=== PATIENT | female | born 1985 | race Caucasian/White ===

== ENCOUNTER 2017-01-29 22:50 | Observation (INO) | payer OTHER ==
[~2017-01-29] VITALS: Ht 170.2 cm; Wt 107.8 kg
[2017-01-29 22:51] VITALS: BP 152/104; PULSE 99; RESP 20; O2SAT 100
[2017-01-29] MEDS ORDERED: 0.9% Sodium Chloride 1,000 ML IV ONE (23:40)
--- NOTE | 2017-01-29 23:43 | ED.REPORT ---
HPI- Female Date of Service Jan 29, 2017 ED Provider: Samuel Lucia Pt is a 13 week 31 year old female who presents to the ED complaining of severe vaginal bleeding onset 10 minutes prior to arrival. She reportedly filled the toilet full with blood. She began with a large clot, indicating to hands full of clot. She c/o associated dizziness, nausea, abdominal cramping, and "hot flashes". She denies vaginal spotting and syncope. The pt reports that her current is her first , and it has not had any complications up until today. Nursing Notes Stated Complaint: 13 WKS BLEEDING Chief Complaint: & Delivery Nursing Notes Reviewed: Yes Allergies: Coded Allergies: No Known Allergies (Unverified , 01/29/17) General Time Seen by MD: 23:43 Chief Complaint Vaginal bleeding... (Moderate) Hx Obtained From: Patient Arrived By: Walk-in Sudden in Onset?: Yes Onset Occurred: 1 - 15 minutes ago Symptom Duration: Since onset Location: : Abdomen lower Quality: Cramping Severity: Current: Moderate Severity: Maximum: Moderate Recent Healthcare: Recent doctor visit Similar Sx Previous: No Past Medical History Past Medical History Healthy 13 weeks pregant - 01/29/17 Past Surgical History Gastric sleeve Smoking History Current Every Day Smoker Social History Alcohol Use: 1-3 per week Drug Use: Denies drug use Other Social History: Ambulatory Status Independent Review of Systems Denies vaginal spotting + Hot flashes GI: Reports: Abdominal pain, Nausea Female: Reports: Vaginal bleeding - abnl Neurologic: Reports: Dizziness, Denies: Syncope Complete sys rev & neg: except as marked. Physical Exam Initial Vital Signs Vital Signs (First) Date Time Temp Pulse Resp B/P Pulse Ox O2 Delivery O2 Flow Rate FiO2 01/29/17 22:51 99 20 152/104 100 Room Air Initial VS: Reviewed Head / Eyes: Atraumatic, Normocephalic Neck: Supple, Full range of motion Respiratory: Breath sounds normal, Clear to auscultation, No respiratory distress Cardiovascular: Regular rate & rhythm, Heart sounds normal, Intact distal pulses Abdomen / GI: Soft, Non-tender Extremities: Vascular intact, Neuro intact Skin: Warm Neurologic: Alert, Oriented, Nonfocal Psychiatric: Mood/affect normal, Behavior normal Female Genitourinary: Exam deferred General/Constitutional: Awake, Alert, No acute distress, Cooperative Behavior: Positive: Anxious Diaphoretic. Abdomen: Atraumatic, Soft Tenderness in lower abdomen. Interpretation & Diagnostics US , TRANSABDOMINAL: IMPRESSION: Single, viable IUP measuring 13 weeks. No subchorionic hemorrhage. Mild fluid in the endocervical canal is nonspecific. Transmitted to the ED at 01:28 by Stacia Thurston M.D. Lab Results Interpretation Result Diagram: 01/30/17 0314 01/29/17 2335 Test 01/29/17 23:35 01/30/17 00:50 01/30/17 03:14 Sodium Level 137mEq/L (134-144) Potassium Level 3.4mEq/L (3.5-5.2) Chloride Level 100mEq/L (97-108) Carbon Dioxide Level 22mmol/L (18-29) Blood Urea Nitrogen 8mg/dL (6-20) Creatinine 0.40mg/dL (0.57-1.00) Estimat Glomerular Filtration Rate 270mL/min (>59) Glucose Level 84mg/dL (60-99) Calcium Level 8.6mg/dL (8.5-10.1) Total Bilirubin 0.2mg/dL (0.0-1.2) Aspartate Amino Transf (AST/SGOT) 13U/L (0-50) Alanine Aminotransferase (ALT/SGPT) 15U/L (0-32) Alkaline Phosphatase 38U/L (25-150) Total Protein 6.9g/dL (6.4-8.4) Albumin 3.8g/dL (3.4-5.0) HCG Beta Subunit [id number]/mL Urine Color Yellow (YELLOW) Urine Appearance Clear (CLEAR,HAZY) Urine pH 6.5 (5.0-8.0) Urine Specific Kimberly 1.020 (1.003-1.035) Urine Protein Negativemg/dL (NEG,TRACE) Urine Glucose (UA) Negativemg/dL (NEGATIVE) Urine Ketones Negativemg/dL (NEGATIVE) Urine Occult Blood Moderate (NEGATIVE) Urine Nitrite Negative (NEGATIVE) Urine Bilirubin Negative (NEGATIVE) Urine Urobilinogen 1.0mg/dL (NORMAL) Urine Leukocyte Esterase Negative (NEGATIVE) Urine RBC 11-50/hpf (0-2) Urine WBC 0-5/hpf (0-5) Urine Epithelial Cells Occasional/hpf (NONE-MOD) Urine Crystals None seen (NONE SEEN) Urine Bacteria Few/hpf (NONE-FEW) Urine Hyaline Casts None/lpf (NONE) Urine Granular Casts None seen (NONE SEEN) Urine Waxy Casts None seen (NONE SEEN) Urine Red Blood Cell Casts None seen (NONE SEEN) Urine White Blood Cell Casts None seen (NONE SEEN) Urine Mucus Present (None Seen) Urine Trichomonas None seen (NONE SEEN) Urine Yeast None (NONE SEEN) Urinalysis Comment None Urine Culture Reflexed Not indicated White Blood Count 7.7th/mm3 (3.8-10.1) Red Blood Count 3.97mil/mm3 (3.90-5.20) Hemoglobin 11.4g/dL (12.0-15.6) Hematocrit 33.4% (35.0-46.0) Mean Corpuscular Volume 84.1fL (81-100) Mean Corpuscular Hemoglobin 28.7pg (27.0-35.0) Mean Corpuscular Hemoglobin Concent 34.1% (32.0-37.0) Red Cell Distribution Width 12.5% (12.3-15.4) Platelet Count 243bil/L (150-400) Hold Purple Top Tube Received (Received) Re-Eval/Medical Decision Med Decision/Clinical Course 31-year-old female presents with fairly significant episodes of bleeding 2 prior to arrival. She appears to slow down now and is been observed for two hours without additional bleeding. Ultrasound shows viable and no obvious source of bleeding. On attempt to get her discharge, she stood up and again began to bleed with a large quantity of blood into the toilet. At this point, we will admit observation status for serial hemoglobin and hematocrits. Type and cross is available in the lab but no transfusion required. Source of Hx: Old records Re-Evaluation/Progress #1: Time of Eval: 00:30 Patient Status: Condition improved Re-Evaluation/Progress Note: Pt rechecked. Informed pt of US results. All questions addressed. Re-Evaluation/Progress #2: Time of Eval: 02:27 Patient Status: Condition improved Re-Evaluation/Progress Note: Pt rechecked. Informed pt of plan for discharge. Pt understands and agrees with plan for discharge. F/U instructions and RTER warnings given. All questions addressed. Re-Evaluation/Progress #3: Time of Eval: 03:39 Re-Evaluation/Progress Note: Pt rechecked. Pt attempted to discharge, but her symptoms returned. Informed pt of plan for admission. Pt understands and agrees with plan for admission. All questions addressed. Consultation : Referral / Consult Name: Patricia García MD Call Returned at: 03:08 Dental Hygienist: Will see patient, Agrees with eval, Agrees with plan, Accepts admit Note: Consult with OBGYN. Discussed pt's case. Counseled Regarding: Diagnosis, Lab results, Need for follow-up, When/why to return to ED, Need for admission Discharge & Departure Impression: Primary Impression: Threatened miscarriage in early Additional Impression: Vaginal bleeding in patient at less than 20 weeks gestation Disposition: ADMITTED TO HOSPITAL Discharge Condition All VS Reviewed: Yes Condition: Stable Patient Instructions: Threatened Miscarriage (ED) Additional Instructions: Home for bed rest, pelvic rest. No bending or lifting, and minimal activity. No sex, no douching. Call your [facility] practice this morning for follow-up as soon as they can arrange that. Return if heavy bleeding returns. Sparing use of Vicodin if ibuprofen is insufficient for pain relief. Referrals: Jaswinder Alicea MD (PCP) Nissa Attestation Portions of this note were transcribed by Ruthie Carranza. I, Dr. Lucia personally performed the history, physical exam and medical decision-making; I reviewed and confirmed the accuracy of the information in the transcribed note. Signed by: Nissa Valentino, 01/30/17 and 02:37. copies to: Jaswinder Alicea MD, Christopher W MD Jan 29, 2017 23:43 Ruthie Stevens Jan 29, 2017 23:46
[2017-01-29] MEDS: fentaNYL-PF 50 mCg/mL 2 mL Inj IVPUSH PRN (23:46)
[2017-01-29] MEDS ORDERED: Ondansetron 2 mg/mL 2 mL Inj ONE (23:52)
[2017-01-30 00:03] LABS: Mean Corpuscular Hemoglobin 28.8 pg (27.0-35.0); Mean Corpuscular Volume 83.9 fL (81-100)
[2017-01-30] MEDS ORDERED: 0.9% Sodium Chloride 1,000 ML IV ONE (01:00)
[2017-01-30] MEDS: fentaNYL-PF 50 mCg/mL 2 mL Inj IVPUSH PRN ×2 (01:05→02:13)
[2017-01-30 01:13] LABS: APPEARANCE,URINE CLEAR (CLEAR,HAZY); COLOR,URINE YELLOW (YELLOW); OCCULT BLOOD,URINE MODERATE (NEGATIVE); PH,URINE 6.5 (5.0-8.0)
[2017-01-30 02:14] VITALS: BP 119/99; PULSE 87; RESP 16; O2SAT 96
[2017-01-30] MEDS ORDERED: _HYDROcodone/APAP 5-325 mg Tablet PO PRN (02:30)
[2017-01-30] MEDS ORDERED: Lactated Ringer's 1,000 ML IV SCH (03:28)
[2017-01-30] MEDS ORDERED: Ondansetron 2 mg/mL 2 mL Inj IVPUSH PRN ×2 (03:30→07:10)
[2017-01-30 03:36] VITALS: BP 109/60; PULSE 84; RESP 16; O2SAT 98
[2017-01-30 03:46] LABS: Mean Corpuscular Hemoglobin 28.7 pg (27.0-35.0); Mean Corpuscular Volume 84.1 fL (81-100)
[2017-01-30] MEDS: HYDROcodone-APAP 5-325 mg Tablet PO PRN ×4 (04:10→16:54)
[2017-01-30 04:11] VITALS: BP 101/63; PULSE 81; RESP 16; O2SAT 98
[2017-01-30] MEDS ORDERED: PNV1TABL9 PO (04:30)
--- NOTE | 2017-01-30 04:39 | NUR ---
Admit Patient admitted to room 3020 at 0350 from ED, accompanied by . Alert and oriented, answered all admit questions. Med list completed - only takes vitamins. Oriented to room, call light, plan of care, policies, intentional rounding. Patient reports some vaginal bleeding, but it has lessened. Call light within reach, intentional rounding in place.
[2017-01-30 07:04] VITALS: PULSE 81
[2017-01-30] MEDS ORDERED: Lactated Ringer's 1,000 ML IV PRN (07:06)
[2017-01-30] MEDS ORDERED: Sodium Chloride LOK Flush 10 mL Syringe IVFLUSH PRN (07:10)
--- NOTE | 2017-01-30 08:03 | PCM.HPOB ---
Subjective Date of Service: Jan 30, 2017 Referring Provider: Admitting Physician: Patricia García MD Primary Care Physician: Jaswinder Alicea MD Attending Physician: Patricia García MD Chief Complaint Vaginal bleeding and cramping during History of Present History of Present Illness Norma is a 31-year-old woman at 12 weeks 5 days that presented to the ED last evening after having copious amounts of vaginal bleeding, abdominal pain and dizziness. An ultrasound was performed which revealed a viable intrauterine with no obvious source of bleeding. Her vital signs remained stable throughout her stay, but her H&H has dropped from 12.7 and 37 on admission to 10.2 and 30.2 this morning. The patient is willing to accept blood products if necessary. Today, the patient says that her pain has mostly subsided, and denies any more gushing of blood, but has not been out of bed, and is not sure if she is continuing to have mild bleeding. Patient is interested in maintaining this . She is also Rh factor negative, and will need RhoGAM during her stay. OB History: (1), Para (0) Obstetrical Complications: None Past Medical History Medical History: Obesity Surgical History: Gastric Sleeve surgery in 2015 Social History: Nonsmoker, nondrinker, no recreational drug use Past Family History Living Arrangement: with Family Review of Systems Constitutional: Y: Pain Hematologic: Report: Abnormal bleeding Medications Home medications vitamin Allergy Coded Allergies: No Known Allergies (Unverified , 01/29/17) Exam Vital Signs Vital Signs Date Time Temp Pulse Resp B/P Pulse Ox O2 Delivery O2 Flow Rate FiO2 01/30/17 07:04 81 01/30/17 04:11 36.7 81 16 101/63 98 Room Air 01/30/17 03:36 36.6 84 16 109/60 98 Room Air 01/30/17 02:14 87 16 119/99 96 Room Air Exam Baseline heart rate 150 BPM, with moderate variability Constitutional: Well-developed, Well-nourished, Obese HEENT: Atraumatic, Scleral Anicteric, Mucous Membr Moist/[place] Lungs: Clear to Auscultation, Normal Air Movement Heart: Exam Unremarkable, Regular Rate/Rhythm, No Murmurs/Rubs/Gallops Abdomen: Gravid, Normal bowel sounds, Soft, No tenderness Extremities: Warm, No Edema Neurological/Psychiatric: Alert, Oriented X3, Cooperative, No Acute Distress Neuro: Grossly Neurologically Intact Labs/Diagnostics Labs Item Value Date Time White Blood Count 8.1 th/mm3 01/29/172334 Red Blood Count 4.41 mil/mm3 01/29/172334 Hemoglobin 12.7 g/dL 01/29/172334 Hematocrit 37.0 % 01/29/172334 Mean Corpuscular Volume 83.9 fL 01/29/172334 Mean Corpuscular Hemoglobin 28.8 pg 01/29/172334 Mean Corpuscular Hemoglobin Concent 34.3 % 01/29/172334 Red Cell Distribution Width 12.5 % 01/29/172334 Platelet Count 243 herb/L 01/29/172334 Hemoglobin 10.2 g/dL L 01/30/17516 Hematocrit 30.3 % L 01/30/17516 White Blood Count 7.7 th/mm3 01/30/17313 Red Blood Count 3.97 mil/mm3 01/30/17313 Hemoglobin 11.4 g/dL L 01/30/17313 Hematocrit 33.4 % L 01/30/17313 Mean Corpuscular Volume 84.1 fL 01/30/17313 Mean Corpuscular Hemoglobin 28.7 pg 01/30/17313 Mean Corpuscular Hemoglobin Concent 34.1 % 01/30/17313 Red Cell Distribution Width 12.5 % 01/30/17313 Platelet Count 243 herb/L 01/30/17313 Ultra Sound Per ED H&P, ultrasound revealed a viable intrauterine without an obvious source of bleeding. Lab/Diagnostic Information Rh- Maternal Blood Type: AB Hx Rho(D) Immune Globulin: No Antibody Screen: negative Rubella: Immune OB Intrapartum Assessment/Plan Assessment 31-year-old at 12 weeks 5 days with Abnormal vaginal bleeding during with anemia -Continue to monitor H&H -Monitor for signs of hemodynamic instability -Administer RhoGAM Pain Evaluation: Adequate Pain Control Intrapartum plan D&C procedure was described to patient as a possible treatment to stop her bleeding, she plans to maintain her at this time. Attending Statement I saw patient, examined her and discussed with her. 13 weeks , viable, with vaginal bleeding. Heavy in ER and admitted for observation. Desire for . After admission, no active bleeding. No symptoms of hypotension or tachycardia. H/H stable. Will continue to monitor till afternoon if no significant vaginal bleeding. Rhogam ordered for Rh negative status. Kyaw Nation DO Jan 30, 2017 08:03 Roxi Fierro MD Jan 30, 2017 10:37
--- NOTE | 2017-01-30 08:45 | DRSVH ---
INDICATIONS: vag bleed @13weeks OUTSIDE/PRIOR DATING DATA: Last menstrual period (LMP): 11/04/16. LMP-based estimated date of delivery (LEROY): 08/11/17. First dating scan (date and location): 12/30/16. Estimated date of delivery (LEROY) from first dating scan: 08/11/17. TECHNIQUE: Real-time transabdominal was performed of the fetus and maternal pelvic organs, with image documentat ion. Limited endovaginal scanning was performed.. COMPARISON: [facility] Ultrasound, US, US OB<14 WKS+OB TRANSVAG, 12/30/2016, 9:27. FINDINGS: Limited examination due to pain and bleeding Embryo: Placenta is fundal. heart rate measures 171 beats per minute. There is free fluid within the en docervical canal, a nonspecific finding. Abdominal circumference measures 12 weeks 6 days. nimesh th measures 12 weeks 4 days. No definite retroplacental fluid collection to suggest hemorrhage IMPRESSION: Limited examination demonstrating single living intrauterine fetus demonstrating gestational age of 1 3 weeks zero days.. No evidence of retroplacental fluid collection/subchorionic hemorrhage. Fluid within the endocervical canal, nonspecific finding. Dictated by: Mundo Clifton M.D. on 01/30/2017 at 8:38 Approved by: Mundo Clifton M.D. on 01/30/2017 at 8:43
--- NOTE | 2017-01-30 14:22 | NUR ---
Bleeding Pt reports scant to very small amount of bleeding. Pt did pass a couple arturo size clots early this morning but has not had more since. Pt tolerating general diet without c/o nausea. Pt has reported 5/10 abd pain, PRN [place] effective for this. Cont to monitor.
--- NOTE | 2017-01-30 15:23 | NUR ---
Social Work: Screening / Multidisciplinary Rounds Data: Pt is a 31 y/o female admitted for perigestational bleed 13 wks . Pt's PCP is Dr Alicea, pt's insurance is [employer]. EMR reviewed. Readmit score not listed. RN states pt possibly ready for d/c today or tomorrow. SECURITY ALARM INSTALLER will continue to follow if needs arise. Assessment: Pt who is independent at baseline. Plan: Pt will d/c home via POV when medically stable. SECURITY ALARM INSTALLER will continue to follow if needs arise. GARIMA Craven
[2017-01-30 17:58] VITALS: BP 122/79; PULSE 91; RESP 20; O2SAT 98
--- NOTE | 2017-01-30 18:23 | PCM.DIGYN ---
Surgical Discharge Instruction Dates of Hospitalization Date of Hospital Admission Jan 30, 2017 at 03:34 Providers Admitting Physician: Patricia García MD Primary Care Physician: Jaswinder Alicea MD Attending Physician: Patricia García MD Diagnosis at Time of Discharge Diagnosis at time of discharge threatened miscarriage Problems: Diet Discharge Diet: No restrictions Activity Discharge Activity-General: Try not to overdue, Be up and about, No lifting > 15 pounds for 2 weeks Dressing and Incisional Care Hygiene: May shower, NO bathtub, hot tub or whirlpool Additional Instructions Discharge Instructions Please try to relax for the next several days. Avoid extensive exercise. Avoid heavy lifting. Avoid anything in vagina. Avoid sex. NO need for complete bed rest. Please continue with your planned office follow up Please go to ER if heavy bleeding again. Follow Up Plan Follow Up Plan as scheduled Call your provider for: Fever, Chills, Heavy vaginal bleeding Roxi Fierro MD Jan 30, 2017 18:23
--- NOTE | 2017-01-30 19:33 | DIS ---
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 After she was admitted, there was only minimal vaginal bloody discharge. No active bleeding. She had no signs of severe anemia, no tachycardia, no hypotension. Her H and H has been stable several times since admission. PLAN: To discharge the patient home. Instructions given. If there is heavy vaginal bleeding, she should come back to ER, otherwise she needs followup in office as she has an appointment scheduled. Also instructed the patient to avoid heavy lifting, avoid anything inside the vagina, avoid having sex. She does not need complete bed rest, but she will also have to avoid extensive labor and exercise.
[2017-01-30 20:09] VITALS: BP 108/74; PULSE 84; RESP 18; O2SAT 99
--- NOTE | 2017-01-30 20:57 | NUR ---
DISCHARGE Pt discharged via personal vehicle with to home with all personal belongings. Given information on miscarriages and educated on diagnosis, s/sx to report to MD or return to ED, to make follow up appt with provider. Pt verbalized understanding. IV removed, intact.
== END 2017-01-30 20:48 | disposition home or self-care (01) ==
LOC: SED 22:50 → MPC 01-30 03:34
PROVIDERS: ADMIT Obstetrics & Gynecology; ATTEND Obstetrics & Gynecology
DX: O20.0 Threatened abortion (principal); Z3A.13 13 weeks gestation of pregnancy; Z98.84 Bariatric surgery status
CPT/HCPCS: 36415; 76801; 80053; 81000; 84702; 85014; 85018; 85027; 86850; 96361; 96372; 96374; 96375; 96376; 99285; G0378; J2405; J2790; J3010; J7030; J7120